=== PATIENT | female | born 1935 | race Caucasian/White ===

== ENCOUNTER 2020-08-31 05:55 | Outpatient (CLI) | payer MEDICARE ==
[~2020-08-31] VITALS: Ht 170.2 cm; Wt 81.8 kg
[2020-08-31] MEDS ORDERED: FURO40TA4 PO (15:54)
[2020-08-31] MEDS ORDERED: ATOR40TA70 PO (15:54)
[2020-08-31] MEDS ORDERED: POTA10CA43 PO (15:54)
== END 2020-09-01 10:12 | disposition home or self-care (01) ==
LOC: PREOP 05:55
PROVIDERS: ATTEND Specialist
DX: Z01.818 Encounter for other preprocedural examination (principal)

== ENCOUNTER 2020-09-02 10:58 | Day surgery (SDC) | payer MEDICARE ==
[~2020-09-02] VITALS: Ht 170.2 cm; Wt 81.8 kg
[~2020-09-02 10:58] MED LIST: ATOR40TA70 PO; FURO40TA4 PO; POTA10CA43 PO
[2020-09-02 11:15] VITALS: BP 179/74
[2020-09-02] MEDS ORDERED: acetaZOLAMIDE ER 500 MG CAP (DIAMOX SEQUELS) PO ONE (11:15)
[2020-09-02] MEDS ORDERED: MOXIFLOXACIN OPHTH SOLN 5 MG/ML 0.3 ML SYRINGE OP ONE (11:15)
[2020-09-02] MEDS ORDERED: POVIDONE (BETADINE) OPHTH SOLN 5% 30 ML OP ONE (11:15)
[2020-09-02] MEDS ORDERED: LIDOCAINE PF 1% 2 ML VIAL IR PRN (11:15)
[2020-09-02] MEDS ORDERED: TIMOLOL MALEATE 0.5% 5 ML (TIMOPTIC) BTL OU PRN (11:15)
[2020-09-02] MEDS: TETRACAINE 0.5% OPHTH SOLN 4 ML BTL (SINGLE DOSE ONLY) OU PRN ×4 (11:20→11:37)
[2020-09-02] MEDS: PHENYLEPHRINE 10% OPHTH (NEO-SYN) 5 ML BTL OU SCH ×3 (11:27→11:37)
[2020-09-02] MEDS: TROPICAMIDE 1% OPH SOLN (MYDRIACYL) 15 ML BTL OP SCH ×3 (11:27→11:37)
--- NOTE | 2020-09-02 11:47 | Ophthalmologist Pre-Op Note ---
Pre-Operative Progress Note H&P Reviewed The H&P was reviewed, patient examined and no changes noted. Date H&P Reviewed: September 02, 2020 Time H&P Reviewed: 11:47 Pre-Op Dx Cataract, Right Eye JAY BOWER MD September 02, 2020 11:47
--- NOTE | 2020-09-02 12:11 | Ophthalmology Operative Report ---
Cataract removal/placement IOL PREOPERATIVE DIAGNOSIS: Cataract Right Eye POSTOPERATIVE DIAGNOSIS: Cataract Right Eye PROCEDURE: Cataract removal and placement of posterior chamber implant, right eye SURGEON: Neal Bower ANESTHESIA: Topical with sedation COMPLICATIONS: None ESTIMATED BLOOD LOSS: Minimal DESCRIPTION OF PROCEDURE: After proper informed consent was obtained, the patient, a 85 female, was taken to the Operating Room and the right eye was anesthetized with tetracaine. The right eye was then prepped and draped in the usual manner. A wire lid speculum was placed. A paracentesis was made at the left hand position. Preservative free lidocaine was injected into the anterior chamber followed by viscoelastic. A clear corneal incision was made in the temporal position. A capsulorrhexis was preformed and the central nuclear and cortical material were removed. The posterior capsule was polished and Jamar 21.5 AU00T0 IOL was placed into the capsular bag. The residual viscoelastic was aspirated and balanced saline solution was injected into the anterior chamber. Moxifloxacin was injected into the anterior chamber. The wound was checked and found to be water tight. The patient tolerated the procedure well without complications. NEAL BOWER MD September 02, 2020 12:11
[2020-09-02 12:22] VITALS: BP 161/90
--- NOTE | 2020-09-04 12:48 | Anesthesia-General Post-Op ---
MAC Significant Intra-Op Events Notes post date entry from 09/02/20 at 1315 Patient Condition Mental Status/LOC: Same as Preop Cardiovascular: Satisfactory Nausea/Vomiting: Absent Respiratory: Satisfactory Pain: Controlled Complications: Absent Post Op Complications Complications None Follow Up Care/Instructions Patient Instructions None needed. Anesthesiology Discharge Order Discharge Order Patient is doing well, no complaints, stable vital signs, no apparent adverse anesthesia problems. No complications reported per nursing. HUNG GODOY CRNA September 04, 2020 12:48
== END 2020-09-02 12:23 | disposition home or self-care (01) ==
LOC: SDC 10:58
PROVIDERS: ATTEND Specialist
DX: H25.11 Age-related nuclear cataract, right eye (principal); Z79.899 Other long term (current) drug therapy; Z83.3 Family history of diabetes mellitus; Z83.511 Family history of glaucoma; Z90.710 Acquired absence of both cervix and uterus
CPT/HCPCS: 66984; V2632

== ENCOUNTER 2020-09-09 06:32 | Outpatient (CLI) | payer MEDICARE ==
[2020-09-13] MEDS ORDERED: CETI-458 PO (13:13)
== END 2020-09-13 13:16 | disposition home or self-care (01) ==
LOC: PREOP 06:32
PROVIDERS: ATTEND Specialist
DX: Z01.818 Encounter for other preprocedural examination (principal)

== ENCOUNTER 2020-09-16 11:00 | Day surgery (SDC) | payer MEDICARE ==
[~2020-09-16] VITALS: Ht 170.2 cm; Wt 81.8 kg
[~2020-09-16 11:00] MED LIST changes: +CETI-458 PO
[2020-09-16] MEDS ORDERED: TIMOLOL MALEATE 0.5% 5 ML (TIMOPTIC) BTL OU PRN (11:30)
[2020-09-16] MEDS ORDERED: MOXIFLOXACIN OPHTH SOLN 5 MG/ML 0.3 ML SYRINGE OP ONE (11:30)
[2020-09-16] MEDS ORDERED: LIDOCAINE PF 1% 2 ML VIAL IR PRN (11:30)
[2020-09-16] MEDS ORDERED: POVIDONE (BETADINE) OPHTH SOLN 5% 30 ML OP ONE (11:30)
[2020-09-16] MEDS: TETRACAINE 0.5% OPHTH SOLN 4 ML BTL (SINGLE DOSE ONLY) OU PRN ×4 (12:10→12:34)
[2020-09-16] MEDS ORDERED: MIDAZOLAM 2 MG/2 ML (VERSED) VIAL ONE (12:11)
[2020-09-16 12:15] VITALS: BP 171/72
[2020-09-16] MEDS: TROPICAMIDE 1% OPH SOLN (MYDRIACYL) 15 ML BTL OP SCH ×3 (12:18→12:34)
[2020-09-16] MEDS: PHENYLEPHRINE 10% OPHTH (NEO-SYN) 5 ML BTL OU SCH ×3 (12:18→12:34)
--- NOTE | 2020-09-16 12:56 | Ophthalmologist Pre-Op Note ---
Pre-Operative Progress Note H&P Reviewed The H&P was reviewed, patient examined and no changes noted. Date H&P Reviewed: Sep 16, 2020 Time H&P Reviewed: 12:56 Pre-Op Dx Cataract, Left Eye JAY BOWER MD Sep 16, 2020 12:56
--- NOTE | 2020-09-16 13:20 | Ophthalmology Operative Report ---
Cataract removal/placement IOL PREOPERATIVE DIAGNOSIS: Cataract Left Eye POSTOPERATIVE DIAGNOSIS: Cataract Left Eye PROCEDURE: Cataract removal and placement of posterior chamber implant, left eye SURGEON: Neal Bower ANESTHESIA: Topical with sedation COMPLICATIONS: None ESTIMATED BLOOD LOSS: Minimal DESCRIPTION OF PROCEDURE: After proper informed consent was obtained, the patient, a 85 female, was taken to the Operating Room and the left eye was anesthetized with tetracaine. The left eye was then prepped and draped in the usual manner. A wire lid speculum was placed. A paracentesis was made at the left hand position. Preservative free lidocaine was injected into the anterior chamber followed by viscoelastic. A clear corneal incision was made in the temporal position. A capsulorrhexis was preformed and the central nuclear and cortical material were removed. The posterior capsule was polished and an Jamar 21.5 AU00T0 was placed into the capsular bag. The residual viscoelastic was aspirated and balanced saline solution was injected into the anterior chamber. Moxifloxacin was injected into the anterior chamber. The wound was checked and found to be water tight. The patient tolerated the procedure well without complications. NEAL BOWER MD Sep 16, 2020 13:20
[2020-09-16 13:30] VITALS: BP 173/69
[2020-09-16] MEDS ORDERED: acetaZOLAMIDE ER 500 MG CAP (DIAMOX SEQUELS) PO ONE (13:30)
--- NOTE | 2020-09-16 13:55 | Anesthesia-General Post-Op ---
MAC Patient Condition Mental Status/LOC: Same as Preop Cardiovascular: Satisfactory Nausea/Vomiting: Absent Respiratory: Satisfactory Pain: Controlled Complications: Absent Post Op Complications Complications None Follow Up Care/Instructions Patient Instructions None needed. Anesthesiology Discharge Order Discharge Order Patient is doing well, no complaints, stable vital signs, no apparent adverse anesthesia problems. No complications reported per nursing. JUAN COLEMAN CRNA Sep 16, 2020 13:55
== END 2020-09-16 13:30 | disposition home or self-care (01) ==
LOC: SDC 11:00
PROVIDERS: ATTEND Specialist
DX: H25.12 Age-related nuclear cataract, left eye (principal); E78.5 Hyperlipidemia, unspecified; M19.90 Unspecified osteoarthritis, unspecified site; Z79.899 Other long term (current) drug therapy; Z90.710 Acquired absence of both cervix and uterus; Z85.828 Personal history of other malignant neoplasm of skin; Z80.41 Family history of malignant neoplasm of ovary
CPT/HCPCS: 66984; V2632